=== PATIENT | female | born 1995 | race Caucasian/White ===

== ENCOUNTER → 2018-03-18 14:54 | Outpatient (CLI) | payer OTHER, MEDICAID, SELFPAY ==
--- NOTE | 2018-03-18 14:57 | DI.US.S_ITS ---
PROCEDURE: US OB >= 14 WEEKS FETUS INDICATIONS: Anatomy Scan OUTSIDE/PRIOR DATING DATA: Last menstrual period (LMP): 10/29/17. LMP-based estimated date of delivery (KIM): 08/05/18. First dating scan (date and location): 03/18/18. Estimated date of delivery (KIM) from first dating scan: 08/06/18. TECHNIQUE: Real-time scanning was performed of the fetus, with image documentation and biometric measurements. Endovaginal scanning: No COMPARISON: [facility], , OB >= 14 WEEKS FETUS, 02/14/2018, 16:26. FINDINGS: General: A single living intrauterine gestation is present. Presentation: Breech. Placenta: Placental position is posterior, without previa. Amniotic fluid index: 17 cm, normal range is 5-24 cm. heart rate: 168 beats per minute. Maternal cervical canal: 4.4 cm long. biometrics: Biparietal diameter: 20 weeks Head circumference: 19 weeks 5 days Abdominal circumference: 19 weeks 5 days Femur length: 19 weeks 6 days Estimated gestational age from initial scan: not applicable. Composite gestational age from present scan: 19 weeks 6 days Estimated weight and percentile: 314 g; 34th percentile Measurement variability for biometric dating: +/- 7 days from 14 weeks to 15 weeks 6 days gestation, +/- 10 days from 16 weeks to 21 weeks 6 days gestation, +/- 2 weeks from 22 weeks to 27 weeks 6 days gestation, +/- 3 weeks for 28 weeks gestation or later. weight reference: 4500 g or EFW >90/95% is considered macrosomia or large for gestational age. EFW <10% is small for gestational age. EFW 5% or less is considered intra-uterine growth restriction. Anatomic survey: Neuro: Ventricles are non-dilated at less than 10 mm. Cisterna magna is normal at 3-11 mm. Cerebellum is normal in size and morphology. Nuchal skin fold: Normal at less than 6 mm between 14-21 weeks gestational age. Face: Nose and lips, facial profile are normal. Spine: No evidence for spina bifida. Heart: Suboptimally visualized. Diaphragm: Diaphragm is intact. Stomach: Left-sided stomach is present. Kidneys: No hydronephrosis. Normal is less than 5 mm in 2nd trimester, less than 7 mm in 3rd trimester. Cord: 3-vessel cord has orthotopic insertion. Bladder: Normal in size. Extremities: All 4 extremities identified. IMPRESSION: 1. Single living IUP present with mean gestational age of 19 weeks 6 days. 2. heart not well visualized otherwise normal anatomic survey. Dictated by: Foreign Bowman [facility] Interpreted: Tushar Brewster MD on 03/19/2018 at 9:32 Approved by: Tushar Brewster M.D. on 03/19/2018 at 13:45
== END ==
PROVIDERS: PCP Obstetrics & Gynecology; Visit Provider Obstetrics & Gynecology
DX: Z36.89 Encounter for other specified antenatal screening (principal)
CPT/HCPCS: 76811

== ENCOUNTER → 2018-04-29 16:33 | Outpatient (CLI) | payer OTHER, MEDICAID, SELFPAY ==
[2018-04-29 18:20] LABS: Hematocrit 33.6 % (36-46); Hemoglobin 11.4 g/dL (12.0-16.0)
[2018-04-29 18:48] LABS: GTT (PREG) 1 Hour PP 50gm Dose 121 mg/dL (76-139)
[2018-04-30 15:56] LABS: Thyroid Stimulating Hormone 2.54 uIU/mL (0.47-4.68)
== END ==
PROVIDERS: PCP Obstetrics & Gynecology; Visit Provider Obstetrics & Gynecology
DX: Z34.02 Encounter for supervision of normal first pregnancy, second trimester (principal)
CPT/HCPCS: 36415; 82950; 84443; 85014; 85018

== ENCOUNTER → 2018-05-27 17:46 | Outpatient (CLI) | payer OTHER, MEDICAID, SELFPAY ==
[2018-05-27 21:42] LABS: Free T4, Direct Thyroxine 0.93 ng/dL (0.78-2.19)
== END ==
PROVIDERS: PCP Obstetrics & Gynecology; Visit Provider Obstetrics & Gynecology
DX: E03.9 Hypothyroidism, unspecified (principal); Z34.92 Encounter for supervision of normal pregnancy, unspecified, second trimester
CPT/HCPCS: 36415; 84439

== ENCOUNTER 2018-06-22 18:49 | Outpatient (CLI) | payer OTHER, MEDICAID, SELFPAY | END 2018-06-22 19:30 | disposition home or self-care (01) | LOC: OB 11-10 15:20 | PROVIDERS: PCP Obstetrics & Gynecology; Visit Provider Obstetrics & Gynecology | DX: O36.8130 Decreased fetal movements, third trimester, not applicable or unspecified (principal); Z3A.33 33 weeks gestation of pregnancy | CPT/HCPCS: 59025; G0378; G0379 ==

== ENCOUNTER → 2018-07-05 14:16 | Outpatient (CLI) | payer OTHER, MEDICAID, SELFPAY ==
[2018-07-05 15:01] LABS: RBC Urine None Seen (0-5/HPF)
[2018-07-05 15:03] LABS: Appearance Urine UA CLEAR; Bilirubin Urine UA NEGATIVE (NEGATIVE); Color Urine UA YELLOW; Glucose Urine UA NEGATIVE (Normal); Ketones Urine UA NEGATIVE (NEGATIVE); Leukocyte Esterase Urine UA NEGATIVE (NEGATIVE); Nitrite Urine UA Negative (Negative); Occult Blood Urine UA NEGATIVE (Negative); Protein Urine UA NEGATIVE (Negative); Specific Gravity Urine UA 1.025 (1.000-1.035); Urobilinogen Urine UA 0.2 E.U./dL (0.2)
[2018-07-05 15:18] LABS: Squamous Epithelial Cell Urine 1-5 /HPF; WBC Urine 1-5/HPF (0-5/HPF)
[2018-07-05 15:20] LABS: Bacteria Urine Moderate (10-30); Culture Indicated Urine Cult Not Indicated
== END | disposition home or self-care (01) ==
PROVIDERS: PCP Obstetrics & Gynecology; Visit Provider Obstetrics & Gynecology
DX: Z34.03 Encounter for supervision of normal first pregnancy, third trimester (principal); Z3A.35 35 weeks gestation of pregnancy; H54.7 Unspecified visual loss; R20.1 Hypoesthesia of skin
CPT/HCPCS: 59025; 81001; G0378; G0379

== ENCOUNTER → 2018-07-21 13:56 | Outpatient (CLI) | payer OTHER, MEDICAID, SELFPAY ==
[2018-07-22 13:50] LABS: Strep Grp B PCR NEG for Grp B Strep
== END ==
PROVIDERS: PCP Obstetrics & Gynecology; Visit Provider Obstetrics & Gynecology
DX: Z34.03 Encounter for supervision of normal first pregnancy, third trimester (principal)
CPT/HCPCS: 87653

== ENCOUNTER 2018-08-06 16:30 | Outpatient (CLI) | payer OTHER, MEDICAID, SELFPAY | END 2018-08-06 17:15 | disposition home or self-care (01) | LOC: LABOR 16:36 → OB 11-10 15:22 | PROVIDERS: PCP Obstetrics & Gynecology; Visit Provider Obstetrics & Gynecology | DX: Z34.83 Encounter for supervision of other normal pregnancy, third trimester (principal); Z3A.40 40 weeks gestation of pregnancy | CPT/HCPCS: 59025; G0378; G0379 ==

== ENCOUNTER 2018-08-09 10:37 | Observation (INO) | payer OTHER, MEDICAID, SELFPAY ==
[2018-08-09 12:12] LABS: Add Manual Diff / Slide Review NO; Basophils Percent Auto 0.4 % (0-2); Eosinophils Percent Auto 0.2 % (2-4); Hematocrit 33.4 % (36-46); Hemoglobin 11.2 g/dL (12.0-16.0); Lymphocytes Percent Auto 12.5 % (25-40); Mean Corpuscular HGB Conc 33.4 % (30-36); Mean Corpuscular Volume 80.8 fL (80-100); Monocytes Percent Auto 5.9 % (3-14); Neutrophils Absolute Auto 9600 /uL (3000-5900); Platelet Count 302 X10^3/uL (150-400); Red Blood Cell Count 4.13 X10^6/uL (4.0-5.2); Red Cell Distribution Width 14.9 % (11.6-14.8); White Blood Cell Count 11.9 X10^3/uL (4.5-11.0)
[2018-08-09 12:13] LABS: Appearance Urine UA CLEAR; Bilirubin Urine UA NEGATIVE (NEGATIVE); Color Urine UA YELLOW; Glucose Urine UA NEGATIVE (Normal); Ketones Urine UA NEGATIVE (NEGATIVE); Leukocyte Esterase Urine UA NEGATIVE (NEGATIVE); Nitrite Urine UA NEGATIVE (Negative); Occult Blood Urine UA 3+ (Negative); Protein Urine UA TRACE (Negative); Urobilinogen Urine UA 0.2 E.U./dL (0.2)
[2018-08-09 12:22] LABS: Alanine Aminotransferase 19 IU/L (9-52); Albumin 3.4 g/dL (3.5-5.0); Albumin Globulin Ratio 1.1 (1.0-2.8); Alkaline Phosphatase 127 U/L (38-126); Aspartate Aminotransferase 16 IU/L (14-36); BUN Creatinine Ratio 17.1 (6-22); Bilirubin Total 0.4 mg/dL (0.2-1.3); Blood Urea Nitrogen 12 mg/dL (7-17); Calcium 8.8 mg/dL (8.4-10.2); Carbon Dioxide 21 mmol/L (22-32); Chloride 108 mmol/L (98-107); Estimated Glomerular Filt Rate > 60.0 mL/min (>60); Globulin 3.1 g/dL (1.7-4.1); Glucose 78 mg/dL (70-100); HEMOLYSIS < 15 (0-50); Potassium 4.2 mmol/L (3.4-5.1); Sodium 140 mmol/L (137-145); Total Protein 6.5 g/dL (6.3-8.2)
--- NOTE | 2018-08-09 13:34 | PM.OBTRLD ---
Visit Information Visit Information Date of evaluation: 08/09/18 Primary OB Provider: Aurora Dupree On-call OB Provider: Bethany Monteiro Reason for Evaluation: Yes rule out labor and Yes other Comments/Additional reasons for admission: Initially scheduled for nonstress test for post dates and hypertension but patient thought perhaps she was in labor . She complains of sudden increase in swelling of her feet. She has a headache that is similar to the start of her usual migraines. Vital Signs Vital Signs: Blood pressure 144/95, pulse of 93 Review of Systems Review of Systems Headache that is similar to start for migraines, no scotomata. Good movement. No fevers. No leakage of fluid. Regular painful contractions. All systems reviewed & are unremarkable except as noted in HPI and below Exam Vital Signs (past 8 hours): Blood pressure 144/95, pulse of 93 Narrative Exam Narrative: Patient with trace edema. DTRs are normal. Objective Labs Result Diagrams: 08/09/18 12:05 08/09/18 12:05 Labs: Laboratory Results - last 24 hr 08/09/18 08/09/18 08/09/18 12:05 12:05 12:05 WBC 11.9 H RBC 4.13 Hgb 11.2 L Hct 33.4 L MCV 80.8 MCH 27.0 MCHC 33.4 RDW 14.9 H Plt Count 302 Neut % (Auto) 81.0 H Lymph % (Auto) 12.5 L Dawes % (Auto) 5.9 Eos % (Auto) 0.2 L Baso % (Auto) 0.4 Neut # (Auto) 9600 H Sodium 140 Potassium 4.2 Chloride 108 H Carbon Dioxide 21 L BUN 12 Creatinine 0.70 Estimated GFR > 60.0 BUN/Creatinine Ratio 17.1 Glucose 78 Calcium 8.8 Total Bilirubin 0.4 AST 16 ALT 19 Alkaline Phosphatase 127 H Total Protein 6.5 Albumin 3.4 L Globulin 3.1 Albumin/Globulin Ratio 1.1 Urine Color Yellow Urine Appearance Clear Urine pH 5.0 Ur Specific [place] 1.020 Urine Protein Trace H Urine Glucose (UA) Negative Urine Ketones Negative Urine Occult Blood 3+ H Urine Nitrate Negative Urine Bilirubin Negative Urine Urobilinogen 0.2 Ur Leukocyte Esterase Negative Urine WBC None seen Urine Bacteria None seen Ur Culture Indicated? Not Reportable Micro UA Comment Not Reportable Evaluation Evaluation Laboratory results: Laboratory Tests 08/09/18 08/09/18 08/09/18 12:05 12:05 12:05 WBC 11.9 H RBC 4.13 Hgb 11.2 L Hct 33.4 L MCV 80.8 MCH 27.0 MCHC 33.4 RDW 14.9 H Plt Count 302 Neut % (Auto) 81.0 H Lymph % (Auto) 12.5 L Dawes % (Auto) 5.9 Eos % (Auto) 0.2 L Baso % (Auto) 0.4 Neut # (Auto) 9600 H Sodium 140 Potassium 4.2 Chloride 108 H Carbon Dioxide 21 L BUN 12 Creatinine 0.70 Estimated GFR > 60.0 BUN/Creatinine Ratio 17.1 Glucose 78 Calcium 8.8 Total Bilirubin 0.4 AST 16 ALT 19 Alkaline Phosphatase 127 H Total Protein 6.5 Albumin 3.4 L Globulin 3.1 Albumin/Globulin Ratio 1.1 Urine Color Yellow Urine Appearance Clear Urine pH 5.0 Ur Specific [place] 1.020 Urine Protein Trace H Urine Glucose (UA) Negative Urine Ketones Negative Urine Occult Blood 3+ H Urine Nitrate Negative Urine Bilirubin Negative Urine Urobilinogen 0.2 Ur Leukocyte Esterase Negative Urine WBC None seen Urine Bacteria None seen Ur Culture Indicated? Not Reportable Micro UA Comment Not Reportable Diagnosis, Plan/Disposition Final Diagnosis (1) Post-dates : Current Visit: Yes Status: Acute (2) Hypertension affecting in third trimester: Current Visit: Yes Status: Acute Plan/Disposition Plan: [facility] labs were normal. After ambulatory for an hour there was minimal change in her cervix. Patient is probably in early labor. Will send her home to return for if her contractions continue.
[2018-08-09 13:36] LABS: Bacteria Urine Few (2-10); Culture Indicated Urine Cult Not Indicated; RBC Urine 10-30/HPF (0-5/HPF); Squamous Epithelial Cell Urine 1-5 /HPF; WBC Urine 1-5/HPF (0-5/HPF)
[2018-08-09] MEDS: OXYCODONE/ACETAMINOPHEN 5/325 TABLET 2 TAB PO (15:21)
== END 2018-08-09 18:31 | disposition home or self-care (01) ==
PROVIDERS: Specialist; Admitting Provider Obstetrics & Gynecology; PCP Obstetrics & Gynecology; Visit Provider Obstetrics & Gynecology
DX: Z34.03 Encounter for supervision of normal first pregnancy, third trimester (principal); Z3A.40 40 weeks gestation of pregnancy; O16.3 Unspecified maternal hypertension, third trimester; O48.0 Post-term pregnancy
CPT/HCPCS: 36415; 59025; 59050; 80053; 81001; 85025; G0378; G0379

== ENCOUNTER 2018-08-10 07:38 | Observation (INO) | payer OTHER, MEDICAID, SELFPAY ==
[2018-08-10] MEDS: OXYCODONE/ACETAMINOPHEN 5/325 TABLET 2 TAB PO (09:12)
== END 2018-08-10 11:15 | disposition home or self-care (01) ==
LOC: LABOR 07:40
PROVIDERS: Admitting Provider Obstetrics & Gynecology; PCP Obstetrics & Gynecology; Visit Provider Obstetrics & Gynecology
DX: Z34.03 Encounter for supervision of normal first pregnancy, third trimester (principal); Z3A.40 40 weeks gestation of pregnancy
CPT/HCPCS: 59025; 59050; G0378; G0379

== ENCOUNTER 2018-08-11 11:37 | Observation (INO) | payer OTHER, MEDICAID, SELFPAY | END 2018-08-11 14:40 | disposition home or self-care (01) | PROVIDERS: Admitting Provider Obstetrics & Gynecology; PCP Obstetrics & Gynecology; Visit Provider Obstetrics & Gynecology | DX: Z34.83 Encounter for supervision of other normal pregnancy, third trimester (principal); Z3A.40 40 weeks gestation of pregnancy | CPT/HCPCS: 59025; 59050; G0378; G0379 ==

== ENCOUNTER 2018-08-12 03:21 | Inpatient (IN) | payer OTHER, MEDICAID, SELFPAY ==
[2018-08-12] MEDS: LACTATED RINGERS 1,000 ML 100 ML IV ×3 (06:03→17:07)
[2018-08-12 06:38] VITALS: BP 148/87
[2018-08-12 07:10] LABS: Add Manual Diff / Slide Review NO; Basophils Percent Auto 0.2 % (0-2); Eosinophils Percent Auto 0.1 % (2-4); Hematocrit 34.1 % (36-46); Hemoglobin 11.4 g/dL (12.0-16.0); Lymphocytes Percent Auto 9.3 % (25-40); Mean Corpuscular HGB Conc 33.4 % (30-36); Mean Corpuscular Hemoglobin 27.2 PG (26-34); Mean Corpuscular Volume 81.4 fL (80-100); Monocytes Percent Auto 5.1 % (3-14); Neutrophils Absolute Auto 10300 /uL (3000-5900); Neutrophils Percent Auto 85.3 % (50-75); Platelet Count 338 X10^3/uL (150-400); Red Blood Cell Count 4.19 X10^6/uL (4.0-5.2); White Blood Cell Count 12.1 X10^3/uL (4.5-11.0)
[2018-08-12] MEDS: OXYTOCIN PREMIX 30 UNIT/500 ML PLAST..BAG IV (08:26)
[2018-08-12 16:11] LABS: Add Manual Diff / Slide Review NO; Basophils Percent Auto 0.4 % (0-2); Eosinophils Percent Auto 0.3 % (2-4); Hematocrit 33.5 % (36-46); Lymphocytes Percent Auto 11.8 % (25-40); Mean Corpuscular HGB Conc 32.8 % (30-36); Mean Corpuscular Hemoglobin 26.6 PG (26-34); Mean Corpuscular Volume 81.2 fL (80-100); Monocytes Percent Auto 8.8 % (3-14); Neutrophils Absolute Auto 10000 /uL (3000-5900); Neutrophils Percent Auto 78.7 % (50-75); Platelet Count 305 X10^3/uL (150-400); Red Blood Cell Count 4.12 X10^6/uL (4.0-5.2); White Blood Cell Count 12.7 X10^3/uL (4.5-11.0)
[2018-08-12 16:30] LABS: Blood Urea Nitrogen 18 mg/dL (7-17); Calcium 8.9 mg/dL (8.4-10.2); Carbon Dioxide 22 mmol/L (22-32); Chloride 104 mmol/L (98-107); Estimated Glomerular Filt Rate 42.3 mL/min (>60); Glucose 78 mg/dL (70-100); HEMOLYSIS < 15 (0-50); Potassium 4.6 mmol/L (3.4-5.1); Sodium 140 mmol/L (137-145); Uric Acid 8.7 mg/dL (2.5-6.2)
[2018-08-12 16:39] LABS: Aspartate Aminotransferase 17 IU/L (14-36)
[2018-08-12] MEDS: FUROSEMIDE 20 MG/2 ML VIAL 10 MG IV (17:07)
[2018-08-12] MEDS: MAGNESIUM SULFATE 4 GM/100 ML PIGGYBACK IV (19:30)
--- NOTE | 2018-08-12 22:13 | PM.OBPRVD ---
Events: Induced HTN, Pre-Eclampsia and Labor Augmentation Delivery date: 08/12/18 Intrapartal events: Severe Preeclampsia Induction method: per pitocin protocol Delivery augmentation: rupture of membranes Delivery monitor: external FHT and external uterine Route of delivery: Episiotomy description: None Laceration description: Superficial (left labial) Delivery repair: chromic (3-0) Estimated blood loss (mL): 1,200 Anesthesia type: Epidural Complications: Severe preeclampsia Oliguria hemorrhage Narrative: Patient complete and pushed for 43 min. At 5:59 p.m., a live female delivered spontaneously over an intact perineum. Thick meconium-stained amniotic fluid was seen at the time of delivery of the head. The remainder of the body delivered without difficulty and was placed on mom's abdomen. After the cord stopped pulsing, the cord was double clamped and cut. Cord bloods were obtained. Pitocin was given in the IV fluids. At 6:02 p.m., the placenta delivered intact with a three-vessel cord. There was a hemorrhage that required Hemabate 250 mcg. No Methergine was given due to patient's blood pressure. Intrauterine exploration was done to remove a large amount of clot. A Bakri balloon was placed and 120 cc was placed in the balloon. Initially there was 100 cc out in the bulb. A superficial left labial laceration was repaired with 3 0 chromic with a running interlocking suture. Estimated blood loss 1200 cc. Apgars 8 at 1 min and 9 at 5 min. Weight 7 lb 8.11 oz. . Epidural analgesia. Bakri balloon to suction. Magnesium sulfate started. stable to recovery. Mom to 1 on 1 RN care. Plan for aftercare: To one on one care
[2018-08-12] MEDS: MAGNESIUM SULFATE 20 GM/500 ML IV.SOLN IV (22:40)
[2018-08-12] MEDS: CEFOTETAN 2 GM/50 ML PIGGYBACK IV (23:16)
[2018-08-12 23:24] LABS: Add Manual Diff / Slide Review NO; Basophils Percent Auto 0.2 % (0-2); Eosinophils Percent Auto 0.1 % (2-4); Hematocrit 27.4 % (36-46); Hemoglobin 9.1 g/dL (12.0-16.0); Lymphocytes Percent Auto 9.2 % (25-40); Mean Corpuscular HGB Conc 33.1 % (30-36); Mean Corpuscular Hemoglobin 26.9 PG (26-34); Mean Corpuscular Volume 81.4 fL (80-100); Monocytes Percent Auto 7.6 % (3-14); Neutrophils Absolute Auto 14900 /uL (3000-5900); Neutrophils Percent Auto 82.9 % (50-75); Platelet Count 312 X10^3/uL (150-400); Red Blood Cell Count 3.37 X10^6/uL (4.0-5.2); Red Cell Distribution Width 15.2 % (11.6-14.8); White Blood Cell Count 17.9 X10^3/uL (4.5-11.0)
[2018-08-13 00:50] LABS: Alanine Aminotransferase 18 IU/L (9-52); Albumin 2.6 g/dL (3.5-5.0); Alkaline Phosphatase 102 U/L (38-126); Aspartate Aminotransferase 40 IU/L (14-36); Bilirubin Total 0.7 mg/dL (0.2-1.3); Bilirubin Unconjugated 0.4 mg/dL (0.0-1.1); Globulin 2.7 g/dL (1.7-4.1); HEMOLYSIS < 15 (0-50); Total Protein 5.3 g/dL (6.3-8.2); Uric Acid 9.1 mg/dL (2.5-6.2)
[2018-08-13 02:08] LABS: BUN Creatinine Ratio 15.8 (6-22); Blood Urea Nitrogen 19 mg/dL (7-17); Calcium 8.4 mg/dL (8.4-10.2); Carbon Dioxide 21 mmol/L (22-32); Chloride 105 mmol/L (98-107); Estimated Glomerular Filt Rate 54.7 mL/min (>60); Glucose 111 mg/dL (70-100); HEMOLYSIS < 15 (0-50); Potassium 4.2 mmol/L (3.4-5.1); Sodium 135 mmol/L (137-145)
[2018-08-13] MEDS: DEXTROSE 5%-0.9% NS 1,000 ML 84 ML IV ×2 (03:15→16:01)
[2018-08-13 04:28] LABS: Creatinine Urine Random 34.5 mg/dL; Protein (Total) Urine Random 23 mg/dL (0-12); Protein Creatinine Ratio Urine 0.66 GRAM/24H
[2018-08-13 05:49] LABS: Add Manual Diff / Slide Review NO; Basophils Percent Auto 0.2 % (0-2); Eosinophils Percent Auto 0.7 % (2-4); Hematocrit 25.6 % (36-46); Hemoglobin 8.7 g/dL (12.0-16.0); Lymphocytes Percent Auto 17.9 % (25-40); Mean Corpuscular HGB Conc 33.9 % (30-36); Mean Corpuscular Hemoglobin 27.4 PG (26-34); Monocytes Percent Auto 7.3 % (3-14); Neutrophils Absolute Auto 9600 /uL (3000-5900); Neutrophils Percent Auto 73.9 % (50-75); Platelet Count 271 X10^3/uL (150-400); Red Blood Cell Count 3.16 X10^6/uL (4.0-5.2)
[2018-08-13 05:54] LABS: Alanine Aminotransferase 18 IU/L (9-52); BUN Creatinine Ratio 16.7 (6-22); Blood Urea Nitrogen 15 mg/dL (7-17); Calcium 8.2 mg/dL (8.4-10.2); Carbon Dioxide 23 mmol/L (22-32); Chloride 103 mmol/L (98-107); Estimated Glomerular Filt Rate > 60.0 mL/min (>60); Glucose 91 mg/dL (70-100); HEMOLYSIS < 15 (0-50); Magnesium 5.4 mg/dL (1.6-2.3); Uric Acid 8.8 mg/dL (2.5-6.2)
[2018-08-13 06:07] LABS: Sodium 133 mmol/L (137-145)
[2018-08-13] MEDS: LEVOTHYROXINE 88 MCG TABLET PO (07:50)
[2018-08-13] MEDS: MAGNESIUM SULFATE 20 GM/500 ML IV.SOLN IV (08:29)
[2018-08-13 08:52] LABS: Alanine Aminotransferase 19 IU/L (9-52); Aspartate Aminotransferase 22 IU/L (14-36)
[2018-08-13] MEDS: DOCUSATE 250 MG CAPSULE PO (09:42)
[2018-08-13] MEDS: PRENATAL VIT,CALC/IRON/FOLIC 1 TABLET 1 TAB PO (09:42)
[2018-08-13] MEDS: CEFOTETAN 2 GM/50 ML PIGGYBACK IV (11:11)
[2018-08-13 17:12] LABS: Aspartate Aminotransferase 14 IU/L (14-36); Blood Urea Nitrogen 12 mg/dL (7-17); Estimated Glomerular Filt Rate > 60.0 mL/min (>60); Uric Acid 8.8 mg/dL (2.5-6.2)
[2018-08-13 17:30] LABS: Add Manual Diff / Slide Review NO; Basophils Percent Auto 0.2 % (0-2); Hematocrit 25.4 % (36-46); Hemoglobin 8.6 g/dL (12.0-16.0); Lymphocytes Percent Auto 18.8 % (25-40); Mean Corpuscular HGB Conc 33.9 % (30-36); Mean Corpuscular Hemoglobin 27.9 PG (26-34); Mean Corpuscular Volume 82.4 fL (80-100); Monocytes Percent Auto 7.6 % (3-14); Neutrophils Absolute Auto 6700 /uL (3000-5900); Neutrophils Percent Auto 72.4 % (50-75); Red Blood Cell Count 3.08 X10^6/uL (4.0-5.2); Red Cell Distribution Width 15.1 % (11.6-14.8); White Blood Cell Count 9.3 X10^3/uL (4.5-11.0)
[2018-08-13 17:31] LABS: Platelet Count 269 X10^3/uL (150-400)
[2018-08-13 17:36] LABS: Alanine Aminotransferase 21 IU/L (9-52)
[2018-08-14] MEDS: CEFOTETAN 2 GM/50 ML PIGGYBACK IV ×2 (00:37→10:45)
[2018-08-14 05:40] LABS: Add Manual Diff / Slide Review NO; Alanine Aminotransferase 16 IU/L (9-52); Aspartate Aminotransferase 12 IU/L (14-36); BUN Creatinine Ratio 16.3 (6-22); Basophils Percent Auto 0.2 % (0-2); Blood Urea Nitrogen 13 mg/dL (7-17); Eosinophils Percent Auto 1.6 % (2-4); Estimated Glomerular Filt Rate > 60.0 mL/min (>60); Hematocrit 22.3 % (36-46); Hemoglobin 7.4 g/dL (12.0-16.0); Lymphocytes Percent Auto 27.4 % (25-40); Mean Corpuscular HGB Conc 33.1 % (30-36); Mean Corpuscular Hemoglobin 27.1 PG (26-34); Mean Corpuscular Volume 81.9 fL (80-100); Monocytes Percent Auto 7.7 % (3-14); Neutrophils Absolute Auto 5300 /uL (3000-5900); Neutrophils Percent Auto 63.1 % (50-75); Platelet Count 217 X10^3/uL (150-400); Red Blood Cell Count 2.72 X10^6/uL (4.0-5.2); Red Cell Distribution Width 15.8 % (11.6-14.8); Uric Acid 8.7 mg/dL (2.5-6.2); White Blood Cell Count 8.4 X10^3/uL (4.5-11.0)
[2018-08-14 05:43] LABS: Platelet Count 217 X10^3/uL (150-400)
[2018-08-14 05:47] LABS: Alanine Aminotransferase 16 IU/L (9-52)
[2018-08-14] MEDS: LEVOTHYROXINE 88 MCG TABLET PO (06:30)
[2018-08-14] MEDS: DOCUSATE 250 MG CAPSULE PO (08:25)
[2018-08-14] MEDS: PRENATAL VIT,CALC/IRON/FOLIC 1 TABLET 1 TAB PO (08:25)
--- NOTE | 2018-08-14 09:45 | DI.US.S_ITS ---
PROCEDURE: US PERIPH VENOUS LOW EXTREM LT INDICATIONS: LEFT CALF PAIN 2 DAYS POST TECHNIQUE: Real-time imaging, as well as color and pulse Doppler interrogation, were performed of the lower extremity deep veins from the inguinal ligament to the popliteal fossa. COMPARISON: None. FINDINGS: The deep veins are normally compressible, and free of intraluminal thrombus. Color and pulse Doppler demonstrate normal phasic intraluminal flow. There is normal augmentation response to distal compression maneuver. IMPRESSION: No evidence of DVT in visualized left lower extremity veins. Dictated by: Wojciech eVlez M.D. on 08/14/2018 at 10:58 Approved by: Wojciech Velez M.D. on 08/14/2018 at 11:01
[2018-08-15] MEDS: LEVOTHYROXINE 88 MCG TABLET PO (07:37)
[2018-08-15 11:29] VITALS: BP 130/65; PULSE 102; RESP 18; TEMP 37
--- NOTE | 2018-10-27 13:29 | PM.OBDS.1 ---
Discharge Providers Date of admission: 08/12/18 03:21 Primary care physician: Aurora Dupree MD Consults: 08/12/18 19:38 Consult to Education Instructor Routine Comment: Discharge provider: Aurora Dupree MD Discharge Date: 08/15/18 Summary Date Patient Seen: 08/15/18 Time Patient Seen: 07:45 Hospital Course: Patient is a 23-year-old 1 para 1 who was augmented with Pitocin at 41 weeks gestation due to prodromal labor and elevated blood pressures. She developed preeclampsia during labor. She progressed to complete dilation and had a spontaneous vaginal delivery over an intact perineum. She had a hemorrhage which required Hemabate as well as Bakri balloon placement. The Bakri balloon was removed on day # 1 with minimal amount of drainage. Patient had no other issues with bleeding. Her blood pressure remained elevated and at discharge she was discharged home on labetalol 100 mg twice a day. She was to follow up at 1 week and 2 weeks for blood pressure checks in the office. Peripartum Data Infant Delivery Method: Natural Vaginal Laceration description: Superficial (left labial) Episiotomy description: None Procedures: Pitocin augmentation of prodromal labor Epidural analgesia Bakri balloon placement complications: uterine atony (hemorrhage requiring hemobate and Bakri balloon placement) and other (Preeclampsia) Discharge Diagnosis (1) 41 weeks gestation of : Status: Acute (2) Preeclampsia: Status: Acute (3) Normal spontaneous vaginal delivery: Status: Acute (4) Elective induction of labor planned: Status: Acute (5) hemorrhage: Status: Acute (6) anemia: Status: Acute Time Spent with Patient Total time spent providing and/or coordinating discharge services: Objective Labs Result Diagrams: 08/14/18 05:16 08/14/18 05:16 Discharge Plan Discharge Plan Patient Disposition: Home Discharge comment: Call with fever, chills, bleeding vaginally more than a pad in an hour, headache, blurred vision or ruq pain. Discharge Med Rec/Prescriptions Prescriptions: No Action breast pump device .Route .MEDSUPPLY Qty: 1 RF: 0 breast pump [Pump In Style Advanced] device .ROUTE .MEDSUPPLY Qty: 1 RF: 0 Follow up/Referrals: Aurora Dupree MD [Primary Care Provider] - 1 Week (BP check on 08/22/2018 @ 0900am 6 weeks for check) Provider Discharge Instructions Diet: Diet as Tolerated and Regular Activity: No intercourse Skin/Wound/Dressing Care Report to your healthcare provider any signs of infection, such as:: chills, fever, night sweats, increased pain and unusual drainage Visit Report/Discharge Packet Instructions: Pre-eclampsia, DI for Heart Failure, DI for Labor and Delivery, Vaginal Stand Alone Forms: Discharge: Care Visit Report Forms: Congestive Heart Failure, Stroke Signs & Symptoms Discharge Data Primary Care Provider: Aurora Dupree Attending Provider: Aurora Dupree Admit Date/Time: 08/12/18 03:21 Discharges patient from system. Discharge Date/Time: 08/15/18 14:30
== END 2018-08-15 14:30 | disposition home or self-care (01) | DRG 542 ==
PROVIDERS: Admitting Provider Obstetrics & Gynecology; PCP Obstetrics & Gynecology; Visit Provider Obstetrics & Gynecology
DX: O13.4 Gestational [pregnancy-induced] hypertension without significant proteinuria, complicating childbirth (principal); O14.14 Severe pre-eclampsia complicating childbirth; Z3A.41 41 weeks gestation of pregnancy; Z37.0 Single live birth; O72.1 Other immediate postpartum hemorrhage; O77.0 Labor and delivery complicated by meconium in amniotic fluid; O70.0 First degree perineal laceration during delivery; E66.01 Morbid (severe) obesity due to excess calories; Z68.44 Body mass index [BMI] 60.0-69.9, adult; J45.909 Unspecified asthma, uncomplicated; E03.9 Hypothyroidism, unspecified; O99.284 Endocrine, nutritional and metabolic diseases complicating childbirth
CPT/HCPCS: 01967; 36415; 59025; 59050; 59409; 76815; 80048; 80076; 82570; 83735; 84156; 84450; 84460; 84550; 85025; 85049; 86850; 86900; 86901; 93971; G0378; G0379; J1940; J2590; J3475

== ENCOUNTER → 2019-11-06 14:55 | Outpatient (CLI) | payer OTHER, MEDICAID, SELFPAY ==
--- NOTE | 2019-11-06 14:58 | DI.US.S_ITS ---
LIMITED ULTRASOUND OF LEFT BREAST: 11/06/2019 CLINICAL: Palpable left breast lump. No prior exams were available for comparison. Color flow and real-time ultrasound of the left breast 3 o'clock region were performed. Espinal scale images of the real-time examination were reviewed. Targeted ultrasound demonstrates a 4.7 cm x 4.0 cm x 1.7 cm oval mass with a circumscribed margin in the left breast at 3 o'clock position 12 cm from the nipple. This oval mass is isoechoic to adjacent fat, is homogenously echoic, and there are no heterogenous mass components. Color flow imaging demonstrates that there is no vascularity present. IMPRESSION: BENIGN 1) 4.7 cm x 4.0 cm x 1.7 cm oval mass with a circumscribed margin in the left breast at 3 o'clock position 12 cm from the nipple at the site of patient's palpable concern is consistent with a benign intramammary lipoma. Recommend clinical follow-up for further evaluation and management of the patient's reported symptoms. 2) There is no sonographic evidence of malignancy in the imaged areas of the left breast. Annual screening mammography beginning at age 40 is recommended, unless earlier high-risk screening is warranted due to individual patient risk factors for the development of breast malignancy. The patient is advised to monitor her breasts and to return for re-imaging and re-evaluation should she feel anything grow or change. This exam was interpreted at Station ID: [id number]. Electronically Signed By: Lamonte Martínez M.D. ecl/:11/06/2019 15:47:40 letter sent: Clinical Evaluation Ultrasound BI-RADS: 2 Benign
== END ==
PROVIDERS: PCP Family Medicine; Visit Provider Family Medicine
DX: N61.0 Mastitis without abscess (principal); D17.79 Benign lipomatous neoplasm of other sites
CPT/HCPCS: 76642

== ENCOUNTER → 2021-01-21 12:08 | Outpatient (CLI) | payer OTHER, MEDICAID, SELFPAY ==
[2021-01-21 13:38] LABS: Free T4, Direct Thyroxine 1.29 ng/dL (0.78-2.19)
[2021-01-21 13:52] LABS: Thyroid Stimulating Hormone 2.58 uIU/mL (0.47-4.68)
[2021-01-21 14:03] LABS: HCG Quantitative /Beta subunit 27248 mIU/mL
== END ==
PROVIDERS: PCP Family Medicine; Referring Provider Obstetrics & Gynecology; Visit Provider Obstetrics & Gynecology
DX: Z34.81 Encounter for supervision of other normal pregnancy, first trimester (principal)
CPT/HCPCS: 36415; 84439; 84443; 84702

== ENCOUNTER → 2021-01-23 11:51 | Outpatient (CLI) | payer OTHER, MEDICAID, SELFPAY ==
[2021-01-23 13:47] LABS: HCG Quantitative /Beta subunit 33354 mIU/mL
== END ==
PROVIDERS: PCP Family Medicine; Referring Provider Obstetrics & Gynecology; Visit Provider Obstetrics & Gynecology
DX: Z34.81 Encounter for supervision of other normal pregnancy, first trimester (principal)
CPT/HCPCS: 36415; 84702

== ENCOUNTER → 2021-02-01 15:43 | Outpatient (CLI) | payer OTHER, MEDICAID, SELFPAY ==
[2021-02-01 17:08] LABS: Appearance Urine UA SL CLOUDY; Bilirubin Urine UA NEGATIVE (NEGATIVE); Color Urine UA YELLOW; Glucose Urine UA NEGATIVE (Negative); Ketones Urine UA TRACE (NEGATIVE); Leukocyte Esterase Urine UA 1+ (NEGATIVE); Nitrite Urine UA NEGATIVE (Negative); Occult Blood Urine UA TRACE-LYSED (Negative); Protein Urine UA NEGATIVE (Negative); Specific Gravity Urine UA >=1.030 (1.000-1.035); Urobilinogen Urine UA 0.2 E.U./dL (0.2)
[2021-02-01 17:21] LABS: Add Manual Diff / Slide Review NO; Basophils Absolute Auto 0 /uL (0-100); Basophils Percent Auto 0.3 % (0-2); Eosinophils Absolute Auto 100 /uL (0-450); Eosinophils Percent Auto 1.7 % (2-4); Hematocrit 37.5 % (36-46); Hemoglobin 12.7 g/dL (12.0-16.0); Lymphocytes Absolute Auto 2200 /uL (1100-4500); Lymphocytes Percent Auto 26.8 % (25-40); Mean Corpuscular HGB Conc 33.8 % (30-36); Mean Corpuscular Hemoglobin 26.8 PG (26-34); Mean Corpuscular Volume 79.4 fL (80-100); Monocytes Absolute Auto 400 /uL (0-900); Monocytes Percent Auto 5.1 % (3-14); Neutrophils Absolute Auto 5400 /uL (1500-7000); Neutrophils Percent Auto 66.1 % (50-75); Platelet Count 285 X10^3/uL (150-400); Red Blood Cell Count 4.73 X10^6/uL (4.0-5.2); Red Cell Distribution Width 14.7 % (11.6-14.8); White Blood Cell Count 8.2 X10^3/uL (4.5-11.0)
[2021-02-01 17:22] LABS: RBC Urine 0-1/HPF (0-5/HPF); Squamous Epithelial Cell Urine 5-10 /HPF (0-5/HPF); WBC Urine 5-10/HPF (0-5/HPF)
[2021-02-01 17:23] LABS: Amorphous Sediment Urine 1+; Bacteria Urine Moderate (10-30); Mucus Urine 2+ (Negative)
[2021-02-01 17:26] LABS: Hemoglobin A1C% w Est Avg Glu 4.9 % (4.0-6.0)
[2021-02-02 08:14] LABS: RPR Screen Non Reactive (Non Reactive); Varicella IgG Antibody 1266 index (Immune >165)
[2021-02-02 18:25] LABS: HIV 1 & 2 Ab/Ag 4th Gen Combo NEGATIVE (NEGATIVE); Hep C Virus Ab w/Reflex Quant NEGATIVE s/c (NEGATIVE); Hepatitis B Surface Antigen NEGATIVE s/c (NEGATIVE)
== END ==
PROVIDERS: PCP Family Medicine; Referring Provider Obstetrics & Gynecology; Visit Provider Obstetrics & Gynecology
DX: Z34.81 Encounter for supervision of other normal pregnancy, first trimester (principal); Z13.1 Encounter for screening for diabetes mellitus
CPT/HCPCS: 36415; 80055; 81003; 81015; 83036; 86787; 86803; 86850; 86900; 86901; 87077; 87086; 87389

== ENCOUNTER → 2021-02-06 12:07 | Outpatient (CLI) | payer OTHER, MEDICAID, SELFPAY ==
--- NOTE | 2021-02-06 12:08 | DI.US.S_ITS ---
PROCEDURE: US OB <= 14 WEEKS FETUS INDICATIONS: Dating ultrasound OUTSIDE/PRIOR DATING DATA: Last menstrual period (LMP): November 22, 2020 LMP-based estimated date of delivery (KIM): August 29, 2021 First dating scan (date and location): February 06, 2021 Estimated date of delivery (KIM) from first dating scan: September 11, 2021 TECHNIQUE: Real-time scanning was performed of the fetus and maternal pelvic organs, with image documentation. Endovaginal scanning was also performed to better visualize the fetus and maternal ovaries. COMPARISON: None. FINDINGS: Embryo: Single living intrauterine identified. pole is identified. [place]-rump length measures 2.3 centimeters corresponding to ultrasound estimated gestational age of 9 weeks 0 days. Measurement variability in dating: +/- 4 weeks by LMP, +/- 7 days by mean sac diameter (use before 6 weeks gestation if crown-rump length not able to be measured), +/- 5 days by crown-rump length (up to 8 weeks 6 days gestation), +/- 7 days by crown-rump length (up to 13 weeks 6 days gestation). Maternal organs: Right ovary not seen and cannot be evaluated. Left ovary is sonographically normal. IMPRESSION: Single living intrauterine with ultrasound estimated gestational age of 9 weeks 0 days corresponding to ultrasound KIM of September 11, 2021. Dictated by: Darby De La Rosa MD, PhD on 02/06/2021 at 15:59 Approved by: Darby De La Rosa MD, PhD on 02/06/2021 at 16:00
== END ==
PROVIDERS: PCP Family Medicine; Referring Provider Obstetrics & Gynecology; Visit Provider Obstetrics & Gynecology
DX: Z34.91 Encounter for supervision of normal pregnancy, unspecified, first trimester (principal); Z3A.09 9 weeks gestation of pregnancy
CPT/HCPCS: 76801; 76817

== ENCOUNTER → 2021-04-05 15:10 | Outpatient (CLI) | payer OTHER, MEDICAID, SELFPAY ==
[2021-04-12 18:29] LABS: AFP, Serum 18.5 ng/mL (.); Estriol, Free 0.98 ng/mL (.); Inhibin A, Dimeric 58.94 pg/mL (.); Inhibin A, MoM 0.58 (.); Maternal Ethnicity Caucasian (.); Maternal Weight 353 lbs (.); Number of Fetuses No (.); OSBR Risk 1 IN 10000 (.); Results Report (.); Test Results *Screen Negative* (.); hCG, MoM 0.83 (.); hCG, Serum 13639 mIU/mL (.)
== END ==
PROVIDERS: PCP Family Medicine; Referring Provider Obstetrics & Gynecology; Visit Provider Obstetrics & Gynecology
DX: Z34.82 Encounter for supervision of other normal pregnancy, second trimester (principal); Z3A.17 17 weeks gestation of pregnancy
CPT/HCPCS: 36415; 82105; 82677; 84702; 86336

== ENCOUNTER → 2021-04-24 15:33 | Outpatient (CLI) | payer OTHER, MEDICAID, SELFPAY ==
--- NOTE | 2021-04-24 15:36 | DI.US.S_ITS ---
PROCEDURE: US OB >= 14 WEEKS FETUS INDICATIONS: ANATOMY SCAN OUTSIDE/PRIOR DATING DATA: Last menstrual period (LMP): 11/22/2020. LMP-based estimated date of delivery (KIM): 08/29/2021. First dating scan (date and location): 02/06/2021. Estimated date of delivery (KIM) from first dating scan: 09/11/2021. TECHNIQUE: Real-time scanning was performed of the fetus, with image documentation and biometric measurements. Endovaginal scanning: Not indicated. COMPARISON: [facility], US, US OB <= 14 WEEKS FETUS, 03/07/2021, 15:19. FINDINGS: General: A single living intrauterine gestation is present. Presentation: Variable Placenta: Placental position is anterior, without previa. Amniotic fluid index: 13.8 cm, normal range is 5-24 cm. heart rate: 150 beats per minute. Maternal cervical canal: 5 cm long. Normal lower limit is 2.5 cm. biometrics: Biparietal diameter: 4.9 cm, 21 weeks, 0 day. Head circumference: 18.7 cm, 21 weeks, 0 day. Abdominal circumference: 15.6 cm, 20 weeks, 6 days. Femur length: 3.6 cm, 21 weeks, 4 days. Estimated gestational age from initial scan: 20 weeks, 0 day. Composite gestational age from present scan: 21 weeks, 1 day. Estimated weight and percentile: 399 grams, 95th percentile. Measurement variability for biometric dating: +/- 7 days from 14 weeks to 15 weeks 6 days gestation, +/- 10 days from 16 weeks to 21 weeks 6 days gestation, +/- 2 weeks from 22 weeks to 27 weeks 6 days gestation, +/- 3 weeks for 28 weeks gestation or later. weight reference: 4500 g or EFW >90/95% is considered macrosomia or large for gestational age. EFW <10% is small for gestational age. EFW 5% or less is considered intra-uterine growth restriction. Anatomic survey: Neuro: Ventricles are non-dilated at less than 10 mm. Cisterna magna is normal at 3-11 mm. Cerebellum is normal in size and morphology. Nuchal skin fold: Normal at less than 6 mm between 14-21 weeks gestational age. Face: Nose and lips, facial profile are normal. Spine: No evidence for spina bifida. Heart: Difficult to evaluate due to position. Diaphragm: Diaphragm is intact. Stomach: Left-sided stomach is present. Kidneys: Difficult to evaluate due to position. Cord: 3-vessel cord has orthotopic insertion. Bladder: Normal in size. Extremities: All 4 extremities identified. IMPRESSION: 1. Single live intrauterine with fetus in variable presentation. heart rate is 150 beats per minute. Normal amount of amniotic fluid. Estimated weight is at 95th percentile for gestational age. 2. Four-chamber heart and outflow tracts are not well visualized due to position. Bilateral kidneys are not well visualized due to position. Rest of the anatomic survey is normal. Dictated by: Wojciech Velez M.D. on 04/25/2021 at 10:07 Approved by: Wojciech Velez M.D. on 04/25/2021 at 10:11
== END ==
PROVIDERS: PCP Family Medicine; Referring Provider Obstetrics & Gynecology; Visit Provider Obstetrics & Gynecology
DX: Z34.82 Encounter for supervision of other normal pregnancy, second trimester (principal); Z3A.21 21 weeks gestation of pregnancy
CPT/HCPCS: 76811

== ENCOUNTER → 2021-05-02 16:23 | Outpatient (CLI) | payer OTHER, MEDICAID, SELFPAY | PROVIDERS: PCP Family Medicine; Visit Provider Obstetrics & Gynecology | DX: R31.9 Hematuria, unspecified (principal) | CPT/HCPCS: 87086 ==

== ENCOUNTER → 2021-05-08 12:11 | Outpatient (CLI) | payer OTHER, MEDICAID, SELFPAY ==
--- NOTE | 2021-05-08 12:12 | DI.US.S_ITS ---
PROCEDURE: US OB FOLLOW UP INDICATIONS: RE-EVALUATE HEART, KIDNEYS OUTSIDE/PRIOR DATING DATA: Last menstrual period (LMP): 11/22/2020. LMP-based estimated date of delivery (KIM): 08/29/2021 . First dating scan (date and location): 02/06/2021 . Estimated date of delivery (KIM) from first dating scan: 09/11/2021 . TECHNIQUE: Real-time scanning was performed of the fetus, with image documentation. Endovaginal scanning: No COMPARISON: [facility], US, US OB <= 14 WEEKS FETUS, 05/02/2021, 16:00. FINDINGS: A single living intrauterine gestation is present. Presentation: Oblique. Placenta: Placental position is left lateral , without previa. Amniotic fluid index: 21.4 cm, normal range is 5-24 cm. heart rate: 145 beats per minute. Maternal cervical canal: 3.8 cm long. Normal lower limit is 2.5 cm. Estimated gestational age from initial scan: 22 weeks 0 days Kidneys again not well seen. Normal appearance of the four-chamber heart and LVOT. RVOT again not well seen . IMPRESSION: 1. Single living IUP redemonstrated. 2. Kidneys and RVOT again not well visualized. Normal appearance of the four-chamber heart and LVOT. Dictated by: Foreign Bowman [facility] Interpreted: Jose Cassidy MD on 05/08/2021 at 13:12 Transcribed by: SEVERO on 05/08/2021 at 13:14 Approved by: Jose Cassidy M.D. on 05/08/2021 at 16:51
== END ==
PROVIDERS: PCP Family Medicine; Referring Provider Obstetrics & Gynecology; Visit Provider Obstetrics & Gynecology
DX: Z36.2 Encounter for other antenatal screening follow-up (principal); Z3A.22 22 weeks gestation of pregnancy
CPT/HCPCS: 76816

== ENCOUNTER → 2021-05-24 10:02 | Outpatient (CLI) | payer OTHER, MEDICAID, SELFPAY ==
--- NOTE | 2021-05-24 10:04 | DI.US.S_ITS ---
PROCEDURE: US OB FOLLOW UP INDICATIONS: RE-EVALUATE KIDNEYS OUTSIDE/PRIOR DATING DATA: Last menstrual period (LMP): 11/22/20 . LMP-based estimated date of delivery (KIM): 08/29/21 . First dating scan (date and location): 02/06/21 . Estimated date of delivery (KIM) from first dating scan: 09/11/21 . TECHNIQUE: Real-time scanning was performed of the fetus, with image documentation. Endovaginal scanning: Not performed COMPARISON: [facility], OB FOLLOW UP, 05/08/2021, 12:34. FINDINGS: A single living intrauterine gestation is present. Presentation: Transverse, head to the maternal right. Placenta: Placental position is anterior , without previa. Amniotic fluid index: 14.2 cm, normal range is 5-24 cm. Largest pocket is 5.5 cm heart rate: 152 beats per minute. Maternal cervical canal: Closed and 3.3 cm long. Normal lower limit is 2.5 cm. Report any funneling of internal cervical os: % of canal length, shape (U or V), width or any U-shaped funneling. Estimated gestational age from initial scan: 24 weeks, two days kidneys appear normal without evidence of hydronephrosis or perinephric fluid fluid filled urinary bladder appears normal. Further imaging of the heart demonstrates normal four chambered heart and normal right and left cardiac outflow tracts. IMPRESSION: 1. Single living intrauterine . 2. Completion of the anatomic survey with visualization of normal kidneys bilaterally as well as right cardiac ventricular outflow tract. Dictated by: Madelyn Messina M.D. on 05/24/2021 at 12:54 Approved by: Madelyn Messina M.D. on 06/05/2021 at 11:45
[2021-05-24 12:56] LABS: Hematocrit 35.5 % (36-46); Hemoglobin 11.6 g/dL (12.0-16.0)
[2021-05-24 13:36] LABS: GTT (PREG) 1 Hour PP 50gm Dose 149 mg/dL (76-139)
== END ==
PROVIDERS: PCP Family Medicine; Referring Provider Obstetrics & Gynecology; Visit Provider Obstetrics & Gynecology
DX: Z3A.26 26 weeks gestation of pregnancy; Z36.2 Encounter for other antenatal screening follow-up
CPT/HCPCS: 36415; 76816; 82950; 85014; 85018

== ENCOUNTER → 2021-05-29 09:23 | Outpatient (CLI) | payer OTHER, MEDICAID, SELFPAY ==
[2021-05-29 10:58] LABS: Glucose Fasting Gestational 92 mg/dL (76-95)
[2021-05-29 11:44] LABS: Glucose 1 Hour Gest 124 mg/dL (76-180)
[2021-05-29 12:57] LABS: Glucose Tol Interp,Gestational INTERPRETATION
[2021-05-29 13:32] LABS: Glucose 2 Hour Gest 120 mg/dL (76-155)
[2021-05-29 14:08] LABS: Glucose 3 Hour Gest 118 mg/dL (76-140)
== END ==
PROVIDERS: PCP Family Medicine; Referring Provider Obstetrics & Gynecology; Visit Provider Obstetrics & Gynecology
DX: Z34.83 Encounter for supervision of other normal pregnancy, third trimester (principal); Z3A.28 28 weeks gestation of pregnancy
CPT/HCPCS: 36415; 82951; 82952

== ENCOUNTER 2021-07-23 11:27 | Outpatient (CLI) | payer OTHER, MEDICAID, SELFPAY ==
--- NOTE | 2021-07-23 15:49 | PM.OBTRLD ---
Visit Information Visit Information Date of evaluation: 07/23/21 Primary OB Provider: Aurora Dupree On-call OB Provider: Yvonne De Leon Reason for Evaluation: Yes non-stress test non-stress test reason: decreased movement Comments/Additional reasons for admission: 26YO @ [id number] here for evaluation of decreased FM. Has not felt movement since last night despite cold drinks, sugar/snack, moving her belly, etc. No cramping or VB. Routine PN care w/ . Vital Signs Vital Signs: BP 102/61, HR111, RR 18/min, Afebrile [facility] Medical History Anxiety (~2006) Asthma (~2010) Chicken pox (~1994) Contraception management Depression (~2004) Irregular menstrual cycle Surgical History History of tonsillectomy and adenoidectomy (~1994) S/P appendectomy (~04/2012) Finger teeth extracted (~2013) Family History Father Hypertension Hyperlipidemia Umbilical hernia Mother Diabetes mellitus Sister Hypertension Depression Anxiety Grandmother Diabetes mellitus Grandfather Hypertension Hyperlipidemia Grandfather Diabetes mellitus Grandmother Parkinson's disease Family/Other Recurrent bone cancer Social History marital status: unmarried,living together number of children: 1 household members: spouse and children lives independently: Yes caregiver/support person: No housing: apartment pets and animals: Yes (2 cats; aware of precautions. ) education level: vocational occupational status: unemployed current occupational exposures/hazards: No malinda/scientologist: Jehov[employer] Witness special malinda needs: No seatbelt use: always helmet use: Yes working smoke detector in home: Yes fire extinguisher in home: Yes carbon monox detector in home: Yes firearms in home: No do you feel safe at home: Yes Smoking Status: Never smoker second hand exposure: No alcohol intake: never substance use type: marijuana during the past year weight has: remained stable well-balanced diet: daily or most days daily servings fruits/ve-4 caffeine: Yes (1 cup of coffee daily. ) Type(s) of exercise: walking frequency: daily duration: 30-45 minutes/day Review of Systems Review of Systems ROS: Yes All systems reviewed with the patient and are negative except as otherwise documented Evaluation Evaluation Baseline heart rate: 145 Variability: Moderate (11-25) monitor accelerations: Present Monitor Decelerations: Absent Contraction Frequency (minutes): 0 Category of Tracing: Reactive Comments: CE deferred FM felt by patient and RN during triage Diagnosis, Plan/Disposition Final Diagnosis (1) Decreased movement affecting management of in third trimester: Status: Acute Plan/Disposition Plan: Discharge to home with reassurance of reactive FHR. Routine precautions. RTC as previously scheduled. OB Disposition: home
== END 2021-07-23 12:20 | disposition home or self-care (01) ==
LOC: LABOR 12:28 → OB 07-25 04:48
PROVIDERS: PCP Family Medicine; Referring Provider Obstetrics & Gynecology; Visit Provider Obstetrics & Gynecology
DX: O36.8130 Decreased fetal movements, third trimester, not applicable or unspecified (principal); Z3A.32 32 weeks gestation of pregnancy
CPT/HCPCS: 59025; G0378; G0379

== ENCOUNTER 2021-07-27 12:10 | Outpatient (CLI) | payer OTHER, MEDICAID, SELFPAY | END 2021-07-27 13:10 | disposition home or self-care (01) | LOC: LABOR 12:12 → OB 08-01 14:35 | PROVIDERS: PCP Family Medicine; Referring Provider Obstetrics & Gynecology; Visit Provider Obstetrics & Gynecology | DX: Z03.71 Encounter for suspected problem with amniotic cavity and membrane ruled out (principal); Z3A.33 33 weeks gestation of pregnancy | CPT/HCPCS: 59025; 84112; G0378; G0379 ==

== ENCOUNTER → 2021-08-15 13:42 | Outpatient (CLI) | payer OTHER, MEDICAID, SELFPAY ==
[2021-08-16 09:37] LABS: Strep Grp B PCR NEG for Grp B Strep
== END ==
PROVIDERS: PCP Family Medicine; Referring Provider Obstetrics & Gynecology; Visit Provider Obstetrics & Gynecology
DX: Z34.83 Encounter for supervision of other normal pregnancy, third trimester (principal); Z3A.36 36 weeks gestation of pregnancy
CPT/HCPCS: 87653

== ENCOUNTER → 2021-08-21 14:09 | Outpatient (CLI) | payer OTHER, MEDICAID, SELFPAY | PROVIDERS: PCP Family Medicine; Referring Provider Obstetrics & Gynecology; Visit Provider Obstetrics & Gynecology | DX: Z34.83 Encounter for supervision of other normal pregnancy, third trimester (principal); R31.9 Hematuria, unspecified; R80.9 Proteinuria, unspecified; R82.998 Other abnormal findings in urine; Z3A.37 37 weeks gestation of pregnancy | CPT/HCPCS: 87086 ==

== ENCOUNTER 2021-09-04 14:42 | Inpatient (IN) | payer OTHER, MEDICAID, SELFPAY ==
[2021-09-04 17:23] VITALS: BP 130/75
[2021-09-04 18:01] LABS: COVID19 -Nasal RAPID Negative (Negative)
[2021-09-04 19:01] LABS: Add Manual Diff / Slide Review NO; Basophils Absolute Auto 0 /uL (0-100); Basophils Percent Auto 0.3 % (0-2); Eosinophils Absolute Auto 0 /uL (0-450); Eosinophils Percent Auto 0.1 % (2-4); Hematocrit 33.9 % (36-46); Hemoglobin 11.2 g/dL (12.0-16.0); Lymphocytes Absolute Auto 1300 /uL (1100-4500); Lymphocytes Percent Auto 10.9 % (25-40); Mean Corpuscular Hemoglobin 26.7 PG (26-34); Mean Corpuscular Volume 80.9 fL (80-100); Monocytes Absolute Auto 600 /uL (0-900); Monocytes Percent Auto 4.6 % (3-14); Neutrophils Absolute Auto 10200 /uL (1500-7000); Neutrophils Percent Auto 84.1 % (50-75); Platelet Count 311 X10^3/uL (150-400); Red Blood Cell Count 4.19 X10^6/uL (4.0-5.2); Red Cell Distribution Width 15.5 % (11.6-14.8); White Blood Cell Count 12.1 X10^3/uL (4.5-11.0)
[2021-09-04] MEDS: ONDANSETRON 4 MG/2 ML INJ (21:34)
--- NOTE | 2021-09-04 22:20 | P.PCN_ITS ---
Regional Block Pre-procedure Procedure: Continuous Lumbar Epidural for L&D Attending OB provider: Aurora Dupree PMH/ROS narrative: , super morbid obesity Hx: No personal or family history of anesthesia problems. PSH/Anesthesia history narrative: multiple pokes required for last epidural Exam narrative: MP3, RRR, CTAB ASA Class: III Labs: Hct 33.9 % (36-46) L 09/04/21 18:49 Plt Count 311 X10^3/uL (150-400) 09/04/21 18:49 Medications: Current Medications Generic Name Dose Route Start Last Admin Trade Name Freq PRN Reason Stop Dose Admin Carboprost Tromethamine 250 mcg 09/04/21 17:01 Carboprost 250 Mcg/Ml Ampul IM Q90M PRN Bleeding Lactated Ringer's 1,000 mls @ 100 mls/hr 09/04/21 17:15 Lactated Ringers IV CONT VENANCIO Oxytocin/Lactated Ringer's 30 unit in 500 mls @ 200 mls/hr 09/04/21 17:01 Oxytocin Premix IV CONT PRN Bleeding Protocol Tranexamic Acid 1,000 mg/ 100 mls @ 200 mls/hr 09/04/21 17:01 Sodium Chloride IV NOW PRN Bleeding Methylergonovine Maleate 0.2 mg 09/04/21 17:01 Methylergonovine 0.2 Mg Tablet PO Q6HR PRN Heavy Bleeding Methylergonovine Maleate 0.2 mg 09/04/21 17:01 Methylergonovine 0.2 Mg/Ml Vial IM NOW PRN Bleeding Misoprostol 800 mcg 09/04/21 17:01 Misoprostol 200 Mcg Tablet CO NOW PRN Bleeding Misoprostol 1,000 mcg 09/04/21 17:01 Misoprostol 200 Mcg Tablet CO NOW PRN Bleeding Misoprostol 400 mcg 09/04/21 17:01 Misoprostol 200 Mcg Tablet SL NOW PRN Bleeding Oxytocin 10 unit 09/04/21 17:01 Oxytocin 10 Unit/Ml Vial IM NOW PRN Bleeding Allergies: Allergies Allergy/AdvReac Type Severity Reaction Status Date / Time bacitracin Allergy Severe Hives Verified 08/28/21 10:16 [From Neosporin ([id number])] fluticasone Allergy Severe Anaphylaxis Verified 08/28/21 10:16 [From Flovent Diskus] neomycin Allergy Severe Hives Verified 08/28/21 10:16 [From Neosporin ([id number])] polymyxin B Allergy Severe Hives Verified 08/28/21 10:16 [From Neosporin ([id number])] Procedure Insertion date: 09/04/21 Insertion time: 22:07 Prep/Local: betadine x3 (chloroprep) and 1% lidocaine Interspace: L2-3 Patient position: sitting Needle: 18 gauge Hustead (12cm) Loss of resistance with: saline (with air bubble) TEODORA at (cm): 9 Catheter placed at SKIN (cm): 14 Catheter in SPACE (cm): 5 Insertion: No CSF, Yes Blood, No Paresthesia with insertion, No Paresthesia with injection and No Test dose reaction Initial Medications TEST DOSE time: 22:07 TEST DOSE: 1.5% lidocaine with epinephrine 1:200k (mL): 5 (3mL initial test do se, 2mL as part of first bolus) BOLUS DOSE time: 22:08 BOLUS DOSE (mL): 2 BOLUS DOSE med: other (100mcg fentanyl via epidural catheter) Infusion INFUSION: 0.0625% bupivacaine and with fentanyl 2 mcg/mL Initial rate (mL/hr): 12 (with bolus of 5mL Q15min lockout) Subsequent interventions: Initial attempt at L3-4, (+) TEODORA at 9cm with (+) blood back through catheter - removed and flushed. Reattempted at L2-3 with TEODORA at 9cm, easy catheter threading. 06:40 - epidural infusate ran out without being able to be replaced for >1hr. Patient with increasing pain in pelvis. Bolus bupi 0.25% 10mL given. 09:24 - good relief with last bolus. Having more lower pain. Bupi 0.25% 10mL given. 12:20 - good relief with last bolus. Internal monitor placed with increased pain. Has pressed button >x2. Bupi 0.25% 10mL given. Post-procedure Anesthesia time START: 21:34 Anesthesia time END: 15:33 Post-procedure Anesthesia Assessment: No Anesthesia complications (to )
--- NOTE | 2021-09-05 | PATH_ITS ---
[facility] Accession Number: [id number] . 01 Material submitted: . fallopian tube - RIGHT AND LEFT FALLOPIAN TUBES . 02 Diagnosis: A. Right and Left Fallopian Tubes, Bilateral Salpingectomy: Cross sections of bilateral fallopian tubes with unilateral benign paratubal cyst. No evidence of dysplasia and malignancy. [facility] 09/10/2021 2257 Local . 02 Electronically signed: . Margaux Lynn MD, Pathologist NPI- [id number] . 01 Gross description: . The specimen is received in formalin labeled bilateral fallopian tubes and consists of two fallopian tubes measuring 5.6 cm in length x 1.0 cm in diameter and 7.5 cm in length x 1.0 cm in diameter. The serosa is pink purple and smooth, and the longer fallopian tube has a 1.0 x 1.0 x 1.0 cm paratubal cyst. Sectioning reveals a champagne pink mucosa and a stellate lumen measuring 0.4 cm in diameter. [place] sections are submitted. . A1 - [place] fallopian tube, margin (blue/en face), central cross sections and bisected fimbria. A2-A3 - Longer fallopian tube, margin (blue/en face), central cross sections and bisected fimbria. ([id number]) /[facility] 09/06/2021 1733 Local . 02 Pathologist provided ICD-10: Z30.2 . 02 CPT . 675374 Performed at: 01 [facility] [address] [id number] MD Unruly Fang MD Phone: [phone] Performed at: 02 [facility] [address] [place], [place] [id number] MD Albina Swartz MD Phone: [phone]
[2021-09-05] MEDS: LACTATED RINGERS 1,000 ML 100 ML IV (01:21)
--- NOTE | 2021-09-05 05:08 | PM.OBHP.IH.1 ---
OB HPI Date/Time Date of admission: 09/04/21 Date Patient Seen: 09/05/21 Time Patient Seen: 05:08 History of Present Condition Chief complaint: Eval of Labor KIM Calculator Estimated Delivery Date Method Current WG Current Estimate 09/11/21 Ultrasound #1 39w 1d Other Estimates 08/29/21 LMP (Certain) 41w 0d : 2 care: good care, initiated at week # (8), number of visits (11) and pounds weight gain (43) Dating criteria OB: based on 1st trimester US only Ultrasounds: normal 1st trimester US and normal mid trimester US Obstetrical complications: none Medical complications OB: none Indications Other reason(s) for admission: Early labor Preadmission Labs Last OB Lab Results: Blood Type A Positive 09/04/21 18:49 09/04/21 Antibody Screen Negative 09/04/21 18:49 09/04/21 Hematocrit 33.9 % (36-46) L 09/04/21 18:49 09/04/21 Hemoglobin 11.2 g/dL (12.0-16.0) L 09/04/21 18:49 09/04/21 Hepatitis B Surface Antigen Negative s/c (NEGATIVE) 02/01/21 15:49 02/01/21 Hepatitis C Antibody Negative s/c (NEGATIVE) 02/01/21 15:49 02/01/21 Rubella Antibody 7.0 IU/mL (>15) L 02/01/21 15:49 02/01/21 Varicella-Zoster IgG Antibody 1266 index (Immune >165) 02/01/21 15:49 02/01/21 Glucose 1 Hour 149 mg/dL (76-139) H 05/24/21 11:00 05/24/21 Group B Streptococcus (PCR) Neg for grp b strep 08/15/21 13:42 08/15/21 Glucose Tolerance Testing: Fasting (92), 1 hr (124), 2 hr (120) and 3 hr (118) -: Chlamydia screen: negative, Gonorrhea screen: negative and Urine: negative -: PAP smear: Abnormal (Fungal organisms) Genetic Screens: Quad screen: Normal External Labs -: Urine: negative Prior (ies) Past Pregnancies Del. Date GA/Weeks Labor Lgth Wt Sex Route Outcome Anesthesia Place Delv Breastfeed Preg Comp Name 10/30/18 42 96 7 lb 8 oz Female vaginal live - full term epidural IH w Dr. Dupree 2.5 years, still BF pre-eclampsia hemorrhage meconium Delta Delivery Date: 08/12/18 Last Updated by: Honey Velaqzuez R.N. Spont labor post-dates prodromal x 5 days, augmented briefly with pitocin, AROM. Severe pre-eclampsia (confirmed by labs, high BP, no sx), oliguria, thick meconium, PPH w/ EBL 1200mL c Bakri Balloon x 24 hrs, Mag sulfate PP. 1st degree labial tear. Evaluation Evaluation Baseline heart rate: 140 Variability: Moderate (11-25) monitor accelerations: Present Monitor Decelerations: Absent Contraction Frequency (minutes): 5 Uterine Contraction Intensity: Strong/Firm Status: Category l Dilation (cm): 8 Effacement (%): 80 station: -2 Position of cervix: mid Consistency: soft [facility] Medical History Anxiety (~2006) Asthma (~2010) Chicken pox (~1994) Contraception management Depression (~2004) Irregular menstrual cycle Surgical History History of tonsillectomy and adenoidectomy (~1994) S/P appendectomy (~04/2012) [place] teeth extracted (~2013) Family History Father Hypertension Hyperlipidemia Umbilical hernia Mother Diabetes mellitus Sister Hypertension Depression Anxiety Grandmother Diabetes mellitus Grandfather Hypertension Hyperlipidemia Grandfather Diabetes mellitus Grandmother Parkinson's disease Family/Other Recurrent bone cancer Social History marital status: unmarried,living together number of children: 1 household members: spouse and children lives independently: Yes caregiver/support person: No housing: apartment pets and animals: Yes (2 cats; aware of precautions. ) education level: vocational occupational status: unemployed current occupational exposures/hazards: No malinda/latter-day: Rastafari special malinda needs: No seatbelt use: always helmet use: Yes working smoke detector in home: Yes fire extinguisher in home: Yes carbon monox detector in home: Yes firearms in home: No do you feel safe at home: Yes Smoking Status: Never smoker second hand exposure: No alcohol intake: never substance use type: marijuana during the past year weight has: remained stable well-balanced diet: daily or most days daily servings fruits/ve-4 caffeine: Yes (1 cup of coffee daily. ) Type(s) of exercise: walking frequency: daily duration: 30-45 minutes/day Meds Home Medications and Allergies Home Medications Medication Instructions Recorded Confirmed Type prenat.vits,nataly,tyw-vlyn-swxtu 1 tab PO DAILY 01/26/21 09/04/21 History hydrocortisone 2.5 % topical cream 1 applic VT BID-QID PRN #30 g 08/28/21 09/04/21 Rx with perineal applicator (Anusol-HC) Allergies Allergy/AdvReac Type Severity Reaction Status Date / Time bacitracin Allergy Severe Hives Verified 08/28/21 10:16 [From Neosporin ([id number])] fluticasone Allergy Severe Anaphylaxis Verified 08/28/21 10:16 [From Flovent Diskus] neomycin Allergy Severe Hives Verified 08/28/21 10:16 [From Neosporin ([id number])] polymyxin B Allergy Severe Hives Verified 08/28/21 10:16 [From Neosporin ([id number])] OB Exam Narrative Exam Narrative: Generally: Patient getting more uncomfortable with epidural Fundal height: 43 cm Estimated weight 7-1/2 lb Extremities: 1+ edema, 1+ DTRs Objective Labs Result Diagrams: 09/04/21 18:49 Labs: Laboratory Results - last 24 hr 09/04/21 09/04/21 09/04/21 17:27 18:49 18:49 WBC 12.1 H RBC 4.19 Hgb 11.2 L Hct 33.9 L MCV 80.9 MCH 26.7 MCHC 33.0 RDW 15.5 H Plt Count 311 Neut % (Auto) 84.1 H Lymph % (Auto) 10.9 L [place] % (Auto) 4.6 Eos % (Auto) 0.1 L Baso % (Auto) 0.3 Neut # (Auto) 76685 H Lymph # (Auto) 1300 [place] # (Auto) 600 Eos # (Auto) 0 Baso # (Auto) 0 SARS-CoV-2 (PCR) Negative Blood Type A Positive Antibody Screen Negative Assessment and Plan Assessment and Plan Assessment and Plan narrative: Assessment: 26-year-old 2 para 1 at 39-,1/7 weeks gestation who presented late yesterday afternoon with prodrome or early labor. She progressed into active labor and received an epidural for pain management Artificial rupture of membranes during a vaginal exam at 3:30 a.m. Patient not comfortable currently with epidural Head coming down acynclitic Plan: Epidural bolus Once patient comfortable will start Pitocin augmentation Position changes with peanut ball Expected management to spontaneous vaginal delivery Time Spent with Patient Total time spent with greater than 50% in coordination of care (as documented) at patient's floor/unit and/or counseling patient:: 15-24 minutes
[2021-09-05] MEDS: FENT 2MCG/ML BUPIV 0.125% EPI 200 MCG/100 ML PLAST..BAG 12 MCG EPIDURAL ×2 (05:22→11:30)
[2021-09-05] MEDS: OXYTOCIN PREMIX 30 UNIT/500 ML PLAST..BAG IV (07:28)
--- NOTE | 2021-09-05 12:05 | PM.OBPNLAB ---
Date/Time Date Patient Seen: 09/05/21 Time Patient Seen: 10:55 Pain Control Pain control: epidural Pelvic Exam Dilation (cm): 8 Effacement (%): 90 station: -2 Amniotic membrane status: Ruptured Contractions Contractions on admission: irregular Monitor mode: External Pitocin rate (mU/min): 1 Contraction frequency (min): 4 Contraction duration (min): 1 Contraction pattern: Irregular Contraction intensity: Moderate Status status: Category l Heart Rate Baseline: 145 Monitor Accelerations: Present Monitor Decelerations: Absent Monitor Variability: Moderate Assessment and Plan Assessment: induction ongoing Comments: Position changes IUPC if unable to assess contractions
--- NOTE | 2021-09-05 12:07 | PM.OBPNLAB ---
Date/Time Date Patient Seen: 09/05/21 Time Patient Seen: 12:07 Pain Control Pain control: epidural Pelvic Exam Dilation (cm): 9 Effacement (%): 90 station: -2 Amniotic membrane status: Ruptured Contractions Monitor mode: External Pitocin rate (mU/min): 5 Contraction frequency (min): 6 Contraction duration (min): 1 Contraction pattern: Irregular Contraction intensity: Moderate Status status: Category l Heart Rate Baseline: 150 Monitor Accelerations: Present Monitor Decelerations: Absent Monitor Variability: Moderate Assessment and Plan Assessment: induction ongoing Plan: other (IUPC placed to assess adequacy of contractions)
--- NOTE | 2021-09-05 15:33 | PM.OBPNLAB ---
Date/Time Date Patient Seen: 09/05/21 Time Patient Seen: 15:00 Pain Control Pain control: epidural Pelvic Exam Dilation (cm): 8 Effacement (%): 90 station: -2 Amniotic membrane status: Ruptured Contractions Monitor mode: Internal Contraction frequency (min): 3 Contraction duration (min): 1 Contraction pattern: Irregular Contraction intensity: Strong/Firm Intrauterine tone measurement: 300 Status status: Category l Heart Rate Baseline: 145 Monitor Accelerations: Present Monitor Decelerations: Absent Monitor Variability: Moderate Assessment and Plan Plan: Comments: The risks, benefits and alternatives and alternatives to the procedure were explained to the patient. The risks including bleeding, infection, injury to the bowel, bladder, or ureters. She also understands that there is possibility of a clot in the leg or lung or a wound infection. She understands all these risks and agrees to proceed. A full par Q was held and consent form was signed.
[2021-09-05] MEDS: CEFAZOLIN 3 GM IN 0.9 % NACL 100 ML IV (15:35)
--- NOTE | 2021-09-05 15:37 | PM.PREOP ---
Pre-operative Note COVID-19 COVID-19 status: Negative Result date/Date tested (Pos, Neg/Pending): 09/04/21 Interval Note History & Physical reviewed/Exam performed by Physician: Yes Changes to H&P: No H&P completed within 30 days and has changed as indicated here:: 09/04/21
--- NOTE | 2021-09-05 15:58 | SUR.OPER ---
Supine on padded OR bed, head on pillow, arms secured on padded arm boards at <90 degrees abduction, legs uncrossed, safety belt at thigh, tape over blanket over lower legs. Bump placed udner patient's right hip.
--- NOTE | 2021-09-05 16:22 | SUR.OPER ---
viable male born at 1600. cord blood vials x2 and placenta sent with L&D nurses.
[2021-09-05 17:06] VITALS: BP 123/67; PULSE 87; RESP 18; TEMP 38; O2SAT 95
[2021-09-05 17:10] VITALS: BP 128/82; PULSE 83; RESP 16; O2SAT 95
[2021-09-05 17:15] VITALS: BP 131/81; PULSE 80; RESP 14; O2SAT 97
--- NOTE | 2021-09-05 17:19 | PM.OBCS.1 ---
Operative Date/Time/Diagnoses Date of procedure: 09/05/21 Time of procedure: 17:21 Pre-op diagnosis: Stage 1 arrest of labor Failure to descend Desires permanent sterilization Morbid obesity Post-op diagnosis: same Procedure & Clinicians Procedure: Primary C section Bilateral salpingectomy Same procedure as scheduled: Yes Indications: Stage I arrest of labor Failure to descend Desires permanent sterilization Surgeon: Aurora Dupree Electronic Assembly: Bethany Monteiro Reason for Electronic Assembly: The events administrative assistant was necessary due to the patient's size for retraction, cutting of suture, and assist in delivery of the baby. Anesthesia Type: Epidural Operative Notes Findings: Live male in the LOT presentation Normal uterus, tubes and ovaries Edematous tissue of uterus and bladder Closure Type: primary Specimen(s): cord blood and tubes/segments of tubes Intraoperative meds administered: Duramorph, Ketorolac and Pitocin Applied: Catheter (To continuous drainage) Estimated Blood Loss (mL): 500 Blood products transfused: none Procedure in detail: The patient was taken to the operating room where she was placed in the dorsal supine position with a leftward tilt. A specific adhesive device was used to retract the pannus. She was then prepped and draped in the usual sterile fashion. A timeout was performed. After epidural analgesia was found to be adequate, a Pfannenstiel skin incision was made 2 fingerbreadths above the pubic symphysis and carried through to the underlying layer fascia. The fascia was nicked in the midline, and the incision extended bilaterally with the Flynn scissors. The superior aspect of the fascial incision was grasped with a Gabby clamps, elevated, and the underlying rectus muscles dissected off sharply and bluntly. Attention was then turned to the inferior aspect of this incision which in a similar fashion was grasped with a [place] clamps, elevated, and the underlying rectus muscles dissected off sharply and bluntly. The rectus muscles were in the midline. The peritoneum was identified, grasped between 2 hemostats, and entered sharply with the Metzenbaum scissors. This incision was extended superiorly and inferiorly with good visualization of the bladder. The Otis ring system was inserted. The bladder flap was found to be edematous. The vesicouterine peritoneum was identified, grasped with the pickup, and entered sharply with the Metzenbaum scissors. This incision was extended bilaterally, and the bladder flap was created digitally. The bladder blade was inserted. The lower uterine segment was incised in a transverse fashion with the scalpel. Upon entering the amniotic sac there was a small amount of clear amniotic fluid. The infant's head was delivered without difficulty. Nose and mouth were suctioned with bulb suction. The remainder of the body delivered without difficulty. The cord was double clamped and cut after 1 minute. Cord bloods were obtained. The was handed off to waiting RN and RT. The placenta was delivered manually. The uterus was cleared of all clots and debris. The uterine incision was repaired with #1 chromic in a running interlocking fashion, and a second layer the same suture was used for an imbricating layer. Hemostasis was achieved. The tubes and ovaries were examined and were found to be normal. The gutters were cleared of all clots and debris. The bladder flap was reapproximated using 2-0 Vicryl in a running fashion. The right tube was carried out to the fimbriated end. 2[address] to the distal end a 2 cm segment of tube was ligated with 0 plain chromic x2. A 1 cm segment of tube was excised. The ends of the tube were cauterized for hemostasis. This was repeated on the patient's left tube. Hemostasis was achieved. The parietal peritoneum was closed using 2-0 Vicryl in a running fashion. The fascia was reapproximated using 0 Vicryl in a running fashion. Subcutaneous layer was copiously irrigated with warm normal saline. 10 simple interrupted sutures of 3-0 Vicryl were placed to reapproximate the subcutaneous layer in 2 layers. The skin was closed with 4-0 Monocryl in a subcuticular fashion. Steri-Strips were placed. An Aquacel dressing was placed. The uterus was expressed of a small amount of old blood. Sponge, lap, and instrument counts were correct x-2. The patient tolerated the procedure well, and was taken to PACU in stable condition. Complications: none Baby 1: Gender: Male Presentation: vertex Position: Left Occiput Transverse Placental Delivery Description: Manual Removal Cord Vessel Description: 3 Vessels score (1 min): 8 score (5 min): 9 weight: 9 lb 11 oz Post-operative Condition: stable Disposition: PACU Aftercare: routine postop
[2021-09-05 17:22] VITALS: BP 128/77; PULSE 80; RESP 15; TEMP 37.2; O2SAT 96
--- NOTE | 2021-09-05 17:23 | SUR.PHASEI ---
Pt arrived, breathing wnl, towel inbetween abdominal folds c/d/i. Towel to stay there per Dr. Dupree.
[2021-09-05 17:31] VITALS: BP 111/81; PULSE 82; RESP 16; O2SAT 99
--- NOTE | 2021-09-05 18:07 | SUR.PHASEI ---
Late entry: Pt ready to go left PACU to via bed. Left with Chris is stable condition, bed low and locked, SCD's on.
[2021-09-05] MEDS: KETOROLAC 30 MG/ML VIAL IV (22:55)
[2021-09-06] MEDS: OXYCODONE IR 5 MG TABLET PO ×4 (00:38→21:08)
[2021-09-06] MEDS: KETOROLAC 30 MG/ML VIAL IV ×2 (05:45→13:13)
[2021-09-06] MEDS: DOCUSATE 100 MG CAPSULE 200 MG PO (08:51)
[2021-09-06] MEDS: ACETAMINOPHEN 325 MG TABLET 650 MG PO ×3 (08:53→23:53)
[2021-09-06] MEDS: PRENATAL VIT,CALC/IRON/FOLIC 1 TABLET 1 TAB PO (08:53)
[2021-09-06 09:11] LABS: Add Manual Diff / Slide Review NO; Basophils Absolute Auto 0 /uL (0-100); Basophils Percent Auto 0.3 % (0-2); Eosinophils Absolute Auto 100 /uL (0-450); Eosinophils Percent Auto 1.4 % (2-4); Hematocrit 25.6 % (36-46); Hemoglobin 8.7 g/dL (12.0-16.0); Lymphocytes Absolute Auto 2200 /uL (1100-4500); Lymphocytes Percent Auto 21.9 % (25-40); Mean Corpuscular HGB Conc 33.8 % (30-36); Mean Corpuscular Hemoglobin 27.3 PG (26-34); Mean Corpuscular Volume 80.6 fL (80-100); Monocytes Absolute Auto 800 /uL (0-900); Monocytes Percent Auto 8.2 % (3-14); Neutrophils Absolute Auto 6800 /uL (1500-7000); Neutrophils Percent Auto 68.2 % (50-75); Platelet Count 215 X10^3/uL (150-400); Red Blood Cell Count 3.18 X10^6/uL (4.0-5.2); Red Cell Distribution Width 15.9 % (11.6-14.8)
--- NOTE | 2021-09-06 16:36 | PM.OBPN.1 ---
Subjective - OB Subjective Patient comments: no complaints, pain well controlled, tolerating diet and flatus present baby status: doing well and nursing well [place] feeding status: exclusively breast feeding Date Patient Seen: 09/06/21 Time Patient Seen: 16:36 Exam Vital Signs (past 8 hours): Oxygen Delivery Method Room Air Narrative Exam Narrative: Generally: Patient sitting up in ed nursing Lungs: Clear to ausculatation bilaterally CV: RRR Fundus: Firm at U Incision: C/D/I with Aquacel Ext: 1 + edema Objective Labs Result Diagrams: 09/06/21 08:04 Labs: Laboratory Results - last 24 hr 09/06/21 08:04 WBC 10.0 RBC 3.18 L Hgb 8.7 L Hct 25.6 L MCV 80.6 MCH 27.3 MCHC 33.8 RDW 15.9 H Plt Count 215 Neut % (Auto) 68.2 Lymph % (Auto) 21.9 L [place] % (Auto) 8.2 Eos % (Auto) 1.4 L Baso % (Auto) 0.3 Neut # (Auto) 6800 Lymph # (Auto) 2200 [place] # (Auto) 800 Eos # (Auto) 100 Baso # (Auto) 0 Assessment & Plan Plan day: 1 plan OB: routine postop care Time Spent With Patient Time: Total time spent is greater than 50% in coordination of care (as documented) at patient's floor/unit and/or counseling patient: Time with patient: 15-24 minutes
[2021-09-06] MEDS: IBUPROFEN 600 MG TABLET PO ×2 (18:12→23:52)
--- NOTE | 2021-09-07 06:12 | PM.OBDS.1 ---
Discharge Providers Provider Date of admission: 09/04/21 14:42 Discharge Date: 09/07/21 Primary care physician: Jose G Sweeney DO Consults: 09/05/21 17:59 Consult to Ict Quality Assurance Engineer Routine Comment: Discharge provider: Aurora Dupree MD Summary Hospital Course Date Patient Seen: 09/07/21 Time Patient Seen: 06:13 Diagnoses: 39-1/7 weeks gestation Prolonged active phase of labor Stage I arrest of labor Failure of descent to the head Morbid obesity Hospital Course: Patient is a 26-year-old 2 para 2 who presented on September 04, 2021 in prodromal early labor. She was at 39-,1/7 weeks gestation. Later that evening she received an epidural for pain management. On September 05, 2021 she progressed slowly to 8 cm. An intrauterine pressure catheter was placed to assess adequacy of contractions. Pitocin augmentation was given. Artificial rupture membranes was performed. She had no further descent or dilation for 4 hours. A decision was made to proceed to a primary low-transverse section. She underwent this procedure without complication. She also underwent a bilateral tubal ligation. Her postoperative course was unremarkable and she was discharged home on day # 2, September 07, 2021. She was tolerating a diet. She was emptying her bladder without the catheter. She was ambulating independently. Her pain was well controlled. was going well. She was passing flatus. Peripartum Data Infant Delivery Method: Section Laceration Description: None Episiotomy description: None Procedures: Epidural analgesia Pitocin augmentation of labor Primary low-transverse section Intrauterine pressure catheter placement complications: none 1: Gender: Male Disposition of : home Status at Discharge Cognitive/behavioral status at discharge: oriented Functional status at discharge: independent ambulation Overall status at discharge: patient is progressing back to baseline Time Spent with Patient Time attestation: Total time spent providing and/or coordinating discharge services: Time spent: Less than 30 minutes Objective Labs Result Diagrams: 09/06/21 08:04 Labs: Laboratory Results - last 24 hr 09/06/21 08:04 WBC 10.0 RBC 3.18 L Hgb 8.7 L Hct 25.6 L MCV 80.6 MCH 27.3 MCHC 33.8 RDW 15.9 H Plt Count 215 Neut % (Auto) 68.2 Lymph % (Auto) 21.9 L [place] % (Auto) 8.2 Eos % (Auto) 1.4 L Baso % (Auto) 0.3 Neut # (Auto) 6800 Lymph # (Auto) 2200 [place] # (Auto) 800 Eos # (Auto) 100 Baso # (Auto) 0 Exam Vital Signs (past 8 hours): Oxygen Delivery Method Room Air Narrative Exam Narrative: Generally: Patient is sitting up in bed, holding infant, no acute distress Lungs: Clear to auscultation bilaterally Cardiovascular: Regular rate and rhythm Fundus: Firm at U Incision: Clean dry and intact with Aquacel dressing Extremities: Negative Homans, 1+ edema Discharge Plan Discharge Plan Patient Disposition: Home Provider Discharge Comment: Call with fever, chills, or redness or drainage around the incision Call with bleeding more than a pad in an hour Ibuprofen 600 mg every 6 hours as needed Tylenol 650 mg every 6 hours as needed Discharge orders & Medications Prescriptions: New oxycodone 5 mg tablet 5 mg PO Q4H PRN (Reason: pain) Qty: 20 0RF Continued prenat.vits,nataly,jaa-[id number]-tlgvm Tablet 1 tab PO DAILY 0RF hydrocortisone [Anusol-HC] 2.5 % cream with perineal applicator 1 applic LA BID-QID PRN (Reason: hemorrhoids) Qty: 30 2RF Follow up/Referrals: Aurora Dupree MD [Physician] - 1 Week (Aquacel dressing removal Call [phone] on saturday to make an appointment for saturday for dressing removal) Diet/Activity/Treatments Diet: Regular Skin/Wound/Dressing Care Report to your healthcare provider any signs of infection, such as:: chills, fever, increased pain, unusual drainage and unusual redness Dressing: Do not remove Visit Report/Discharge Packet Instructions: DI for , DI for Prescription Opioid Use Discharge Data Primary Care Provider: Jose G Sweeney
[2021-09-07] MEDS: OXYCODONE IR 5 MG TABLET PO ×2 (06:39→13:52)
[2021-09-07] MEDS: IBUPROFEN 600 MG TABLET PO ×2 (06:40→13:52)
[2021-09-07] MEDS: ACETAMINOPHEN 325 MG TABLET 650 MG PO ×2 (06:40→13:51)
[2021-09-07] MEDS: DOCUSATE 100 MG CAPSULE 200 MG PO (08:41)
[2021-09-07] MEDS: PRENATAL VIT,CALC/IRON/FOLIC 1 TABLET 1 TAB PO (08:41)
[2021-09-07 10:32] VITALS: BP 111/81; PULSE 82; RESP 16; TEMP 37.2
== END 2021-09-07 16:15 | disposition home or self-care (01) | DRG 540 ==
PROVIDERS: Admitting Provider Obstetrics & Gynecology; PCP Family Medicine; Referring Provider Obstetrics & Gynecology; Visit Provider Obstetrics & Gynecology
PROC: 10D00Z1 Extraction of Products of Conception, Low, Open Approach (ICD-10-PCS; CPT 59514; principal; 2021-09-05 15:15)
DX: O64.8XX0 Obstructed labor due to other malposition and malpresentation, not applicable or unspecified (principal); O99.214 Obesity complicating childbirth; E66.01 Morbid (severe) obesity due to excess calories; O63.0 Prolonged first stage (of labor); Z30.2 Encounter for sterilization; Z3A.39 39 weeks gestation of pregnancy; Z37.0 Single live birth; Z20.822 Contact with and (suspected) exposure to COVID-19
CPT/HCPCS: 01967; 01968; 36415; 58611; 59050; 59514; 85025; 86850; 86900; 86901; 87635; C9803; G0379; J0690; J1885; J2250; J2274; J2405; J2590

== ENCOUNTER → 2023-09-09 12:59 | Outpatient (CLI) | payer OTHER, MEDICAID, SELFPAY ==
[2023-09-09 13:23] LABS: Add Manual Diff / Slide Review NO; Basophils Absolute Auto 0 /uL (0-100); Basophils Percent Auto 0.5 % (0-2); Eosinophils Absolute Auto 200 /uL (0-450); Eosinophils Percent Auto 3.1 % (2-4); Hematocrit 36.7 % (36-46); Hemoglobin 12.2 g/dL (12.0-16.0); Lymphocytes Absolute Auto 2100 /uL (1100-4500); Lymphocytes Percent Auto 27.3 % (25-40); Mean Corpuscular HGB Conc 33.3 % (30-36); Mean Corpuscular Hemoglobin 26.4 PG (26-34); Mean Corpuscular Volume 79.2 fL (80-100); Monocytes Absolute Auto 600 /uL (0-900); Monocytes Percent Auto 7.2 % (3-14); Neutrophils Absolute Auto 4800 /uL (1500-7000); Neutrophils Percent Auto 61.9 % (50-75); Platelet Count 264 X10^3/uL (150-400); Red Blood Cell Count 4.64 X10^6/uL (4.0-5.2); Red Cell Distribution Width 14.8 % (11.6-14.8); White Blood Cell Count 7.7 X10^3/uL (4.5-11.0)
[2023-09-09 13:30] LABS: Hemoglobin A1C% w Est Avg Glu 5.3 % (4.0-6.0)
[2023-09-09 13:41] LABS: HEMOLYSIS < 15 (0-50); Iron 64 ug/dL (37-170)
[2023-09-09 13:44] LABS: Alanine Aminotransferase 19 IU/L (<35); Albumin 4.2 g/dL (3.5-5.0); Albumin Globulin Ratio 1.2 (1.0-2.8); Alkaline Phosphatase 67 U/L (38-126); Aspartate Aminotransferase 22 IU/L (14-36); BUN Creatinine Ratio 15.9 (6-22); Bilirubin Total 0.9 mg/dL (0.2-1.3); Blood Urea Nitrogen 11 mg/dL (7-17); Calcium 9.5 mg/dL (8.4-10.2); Carbon Dioxide 29 mmol/L (22-32); Chloride 99 mmol/L (98-107); Estimated Glomerular Filt Rate > 60 mL/min (>60); Globulin 3.5 g/dL (1.7-4.1); Glucose 87 mg/dL (70-100); HEMOLYSIS < 15 (0-50); Potassium 4.1 mmol/L (3.4-5.1); Sodium 134 mmol/L (137-145); Total Protein 7.7 g/dL (6.3-8.2)
[2023-09-09 13:51] LABS: Percent Iron Saturation 19 % (15-50); Total Iron Binding Capacity 340 ug/dL (265-497); Transferrin 303 mg/dL (206-381)
[2023-09-09 13:57] LABS: Free T4, Direct Thyroxine 1.09 ng/dL (0.78-2.19)
[2023-09-09 14:11] LABS: Thyroid Stimulating Hormone 3.41 uIU/mL (0.47-4.68)
[2023-09-09 14:33] LABS: Vitamin B12 432 pg/mL (239-931)
== END ==
PROVIDERS: PCP Family Medicine; Referring Provider Family Medicine; Visit Provider Family Medicine
DX: F32.9 Major depressive disorder, single episode, unspecified (principal); F41.9 Anxiety disorder, unspecified; O99.280 Endocrine, nutritional and metabolic diseases complicating pregnancy, unspecified trimester; E03.9 Hypothyroidism, unspecified; D64.9 Anemia, unspecified; R73.03 Prediabetes
CPT/HCPCS: 36415; 80053; 82607; 83036; 83540; 83550; 84439; 84443; 85025

== ENCOUNTER → 2025-05-13 10:00 | Outpatient (CLI) | payer OTHER, SELFPAY ==
[2025-05-13 11:13] LABS: Cholesterol 196 mg/dL (140-199); HDL Cholesterol 36 mg/dL (40-60); Triglycerides 243 mg/dL (35-150)
[2025-05-13 11:43] LABS: TSH w/ Reflex to FT4 4.65 uIU/mL (0.47-4.68)
== END ==
PROVIDERS: PCP Family Medicine; Referring Provider Family Medicine; Visit Provider Family Medicine
DX: R51.9 Headache, unspecified (principal); F41.9 Anxiety disorder, unspecified; E66.01 Morbid (severe) obesity due to excess calories
CPT/HCPCS: 36415; 80061; 84443